=== PATIENT | female | born 1990 | race American Indian/Alaskan Native ===

== ENCOUNTER 2021-12-08 03:15 | Emergency (ER) | payer SELFPAY ==
[2021-12-08 03:23] VITALS: BP 125/75
== END 2021-12-08 04:50 | disposition left against medical advice (07) ==
LOC: ED 03:15
DX: J06.9 Acute upper respiratory infection, unspecified (principal); Z53.21 Procedure and treatment not carried out due to patient leaving prior to being seen by health care provider